=== PATIENT | female | born 1995 | race Caucasian/White ===

== ENCOUNTER 2017-06-29 09:25 | Emergency (ER) | payer BC ==
[2017-06-29 09:48] VITALS: RESP 16; TEMP 97.7; O2SAT 98
--- NOTE | 2017-06-29 10:41 | C.PDOC ---
History Of Present Illness 22 yr old female with no prior history, presents to the ER with complaints if right upper leg pain for the past 1 month. Patient denies trauma but states she occasionally helps in lifting of a family member, unsure if related. Patient reports of pain to the right posterior leg. Denies fever, back pain, foot pain, weakness or numbness. Time Seen by Provider: 06/29/17 10:30 Chief Complaint (Nursing): Lower Extremity Problem/Injury History Per: Patient History/Exam Limitations: no limitations Onset/Duration Of Symptoms: Days (1 month) Past Medical History Reviewed: Historical Data, Nursing Documentation, Vital Signs Vital Signs: Last Vital Signs Temp 97.7 F 06/29/17 09:45 Pulse 70 06/29/17 10:50 Resp 16 06/29/17 10:50 BP 119/75 06/29/17 10:50 Pulse Ox 98 06/29/17 10:50 - [facility] TONSILLECTOMY/ADENOIDEC (11/21/01) Family History: States: No Known Family Hx - Social History Hx Alcohol Use: No Hx Substance Use: No - Immunization History Hx Tetanus Toxoid Vaccination: No Hx Influenza Vaccination: No Hx Pneumococcal Vaccination: No Review Of Systems Except As Marked, All Systems Reviewed And Found Negative. Constitutional: Negative for: Fever Musculoskeletal: Positive for: Leg Pain (Right upper, posterior leg pain). Negative for: Back Pain, Foot Pain Neurological: Negative for: Weakness, Numbness Physical Exam - Physical Exam Appears: Non-toxic, No Acute Distress Skin: Warm, Dry, No Rash Head: Atraumatic, Normacephalic Oral Mucosa: Moist Chest: Symmetrical, No Tenderness Cardiovascular: Rhythm Regular, No Murmur Respiratory: Normal Breath Sounds, No Rales, No Rhonchi, No Stridor, No Wheezing Extremity: Normal ROM, Tenderness (Right Leg - Mild tenderness to the posterior leg.), No Calf Tenderness, Capillary Refill (<2) Neurological/Psych: Oriented x3, Normal Speech, Normal Motor ED Course And Treatment O2 Sat by Pulse Oximetry: 98 (RA) Pulse Ox Interpretation: Normal Medical Decision Making Medical Decision Making: suspect sciatica, ro dvt PLAN: * Venous Duplex NOTE: Patient left before Venous imaging. signs ama Disposition - Disposition Referrals: [facility] [Outside] [facility] [Outside] [facility] [Outside] Disposition: AGAINST MEDICAL ADVICE Disposition Time: 11:00 Condition: UNKNOWN Additional Instructions: you are leaving without any diagnostic work up. return to er with worsening symptoms or concenrs. Instructions: Leg Pain (ED) Forms: [facility] ([facility]) - Clinical Impression Clinical Impression: Leg pain - Scribe Statement The provider has reviewed the documentation as recorded by the Scribe Alla Pham Provider Attestation: All medical record entries made by the Jerricaibe were at my direction and personally dictated by me. I have reviewed the chart and agree that the record accurately reflects my personal performance of the history, physical exam, medical decision making, and the department course for this patient. I have also personally directed, reviewed, and agree with the discharge instructions and disposition.
[2017-06-29 10:50] VITALS: BP 119/75; PULSE 70
== END 2017-06-29 10:50 | disposition left against medical advice (07) ==
LOC: C.ER 09:25
DX: M79.604 Pain in right leg (principal)